=== PATIENT | female | born 1970 | race Caucasian/White ===

== ENCOUNTER 2016-12-14 14:06 | Emergency (ER) | payer OTHER ==
[~2016-12-14] VITALS: Ht 154.9 cm; Wt 63.5 kg
[2016-12-14 14:08] VITALS: BP 142/73; PULSE 96; RESP 18; TEMP 98.1; O2SAT 98
[2016-12-14 14:39] VITALS: BP 117/70; PULSE 87; RESP 25; TEMP 98.1; O2SAT 99
--- NOTE | 2016-12-14 14:43 | PD ---
HPI . chest pain post fall. Chief Complaint: Respiratory Distress Time Seen by Provider: 14:37 Travel History International Travel<30 days: No Contact w/Intl Traveler<30days: No Traveled to known affect area: No History of Present Illness HPI Patient states that she fell and injured her left anterior chest wall. She states she cannot breathe. PFSH Past Medical History ?: Not Social History Tobacco Use: Yes Allergies-Medications (Allergen,Severity, Reaction): Coded Allergies: No Known Allergies (Unverified , 12/14/16) Reported Meds & Prescriptions Reported Meds & Active Scripts Active Percocet (Oxycodone-Acetaminophen) 5-325 mg Tab 1-2 Tab PO Q6H PRN Ibuprofen 800 Mg Tab 800 Mg PO Q8H PRN Review of Systems Except as stated in HPI: all other systems reviewed are Neg Respiratory: Positive: Shortness of Breath Musculoskeletal: Positive: Myalgias (left anterior chest wall) Physical Exam Narrative GENERAL: The patient is speaking in a loud, forced whisper SKIN: Warm and dry. HEAD: Atraumatic. Normocephalic. EYES: Pupils equal and round. ENT: No nasal bleeding or discharge. Mucous membranes pink and moist. Most of her teeth are rotten to the gumline. NECK: Trachea midline. Neck is supple. CARDIOVASCULAR: Regular rate and rhythm. Heart sounds are normal. RESPIRATORY: No accessory muscle use. Lungs are clear with full air movement throughout. She has a harsh expiratory sounds which is heard loudest over her anterior neck. GASTROINTESTINAL: Abdomen soft, non-tender, nondistended. MUSCULOSKELETAL: No obvious deformities. No edema. NEUROLOGICAL: Awake and alert. No obvious cranial nerve deficits. Motor grossly within normal limits. Normal speech. PSYCHIATRIC: Inappropriate mood and affect. She seems unusually tearful. Data Data Last Documented VS Vital Signs Date Time Temp Pulse Resp B/P Pulse Ox O2 Delivery O2 Flow Rate FiO2 12/14/16 14:39 98.1 87 25 117/70 99 Nasal Cannula 2 Orders Complete Blood Count With Diff (12/14/16 14:16) Basic Metabolic Panel (Bmp) (12/14/16 14:16) Blood Culture (12/14/16 14:16) Iv Access Insert/Monitor (12/14/16 14:16) Ecg Monitoring (12/14/16 14:16) Oxygen Administration (12/14/16 14:16) Oximetry (12/14/16 14:16) Electrocardiogram (12/14/16 14:16) Ketorolac Inj (Toradol Inj) (12/14/16 14:45) Lorazepam Inj (Ativan Inj) (12/14/16 14:45) Chest,Inspiration & Expiration (12/14/16 14:39) Tramadol (Ultram) (12/14/16 16:15) Humerus (Min 2vws) (12/14/16 16:19) MDM Medical Decision Making Medical Screen Exam Complete: Yes Emergency Medical Condition: Yes Differential Diagnosis Differential diagnosis includes but is not limited to chest wall contusion, sternal or rib fracture, pneumothorax Narrative Course Patient presents for evaluation of a chest wall injury. She has full and equal breath sounds. Her respiratory rate was about 16 with O2 sats 98% on room air. Inspiratory/expiratory chest x-ray is negative for pneumothorax. The patient has no obvious rib fractures. She is stable for discharge. The patient has been on her call lott constantly requesting pain medication. 4:21 PM Patient is now complaining that her left humerus hurts. I have ordered an x- ray of same. 5:26 PM Her humeral x-ray does show a nondisplaced fracture just distal to the humeral head. I will treat her with a sling and swathe and give her a referral to orthopedics. Diagnosis Primary Impression: Chest wall contusion Qualified Code: S20.212A - Chest wall contusion, left, initial encounter Additional Impression: Left humeral fracture Qualified Code: S42.295A - Other closed nondisplaced fracture of proximal end of left humerus, initial encounter Referrals: Jeffry Burton MD 1 week Patient Instructions: Chest Wall Pain (ED), General Instructions, Narcotic given in the ED, Proximal Humerus Fracture (ED) Med/Other Pt SpecificInfo: Prescription(s) given Scripts Oxycodone-Acetaminophen (Percocet)5-325 mg Tab1-2 Tab PO Q6H PRN (PAIN) #15 TAB Ref 0 Prov:Radha Tubbs MD 12/14/16 Ibuprofen 800 Mg [id number] Mg PO Q8H PRN (pain) #15 TAB Ref 0 Prov:Radha Tubbs MD 12/14/16 Disposition: 01 DISCHARGE HOME Condition: Stable Radha Tubbs MD Dec 14, 2016 14:43
[2016-12-14] MEDS ORDERED: LORazepam 2 MG/ML VIAL IM ONE (14:45)
[2016-12-14] MEDS ORDERED: KETOROLAC TROMETHAMINE 60 MG/2 ML (IM) VIAL IM ONE (14:45)
--- NOTE | 2016-12-14 16:05 | RADRPT ---
EXAM DATE/TIME: 12/14/2016 15:42 [facility] COMPARISON: No previous studies available for comparison. INDICATIONS : Left chest pain post fall today. MEDICAL HISTORY : None. SURGICAL HISTORY : None. ENCOUNTER: Initial ACUITY: 1 day PAIN SCORE: 10/10 LOCATION: Left chest FINDINGS: Frontal views of the chest in inspiration and expiration were performed. The lungs are symmetrically aerated and clear. No evidence of pneumothorax. There is no evidence of mediastinal shift between inspiration and expiration. The cardio-mediastinal contours are unremarkable. Osseous structures are intact. CONCLUSION: Normal examination. Ana Cristina Scott MD on December 14, 2016 at 16:03 Board Certified Radiologist. This report was verified electronically.
[2016-12-14] MEDS ORDERED: traMADol HCL 50 MG TAB PO ONE (16:15)
[2016-12-14] MEDS ORDERED: IBUP800T23 PO (16:17)
[2016-12-14] MEDS ORDERED: ULTR50TA5 PO (16:17)
--- NOTE | 2016-12-14 17:07 | RADRPT ---
EXAM DATE/TIME: 12/14/2016 16:33 [facility] COMPARISON: No previous studies available for comparison. INDICATIONS : Left arm pain post fall today. MEDICAL HISTORY : None. SURGICAL HISTORY : None. ENCOUNTER: Initial ACUITY: 1 day PAIN SCORE: 10/10 LOCATION: Left arm FINDINGS: 2 views of the left humerus demonstrates a nondisplaced fracture involving the greater tuberosity of the humerus. No evidence of shoulder dislocation. The bones appear normally mineralized. Adjacent sof t tissues are unremarkable. CONCLUSION: Nondisplaced fracture involving the left humerus at the level of the greater tuberosi ty. Ana Cristina Scott MD on December 14, 2016 at 17:05 Board Certified Radiologist. This report was verified electronically.
[2016-12-14] MEDS ORDERED: PERC5TAB12 PO (17:29)
== END 2016-12-14 18:22 | disposition home or self-care (01) ==
LOC: NEPA 14:06
DX: S42.255A Nondisplaced fracture of greater tuberosity of left humerus, initial encounter for closed fracture (principal); S20.212A Contusion of left front wall of thorax, initial encounter; W19.XXXA Unspecified fall, initial encounter; Y93.9 Activity, unspecified; Y92.9 Unspecified place or not applicable
CPT/HCPCS: 29240; 71020; 73060; 96372; 99284; J1885; J2060

== ENCOUNTER 2016-12-19 17:59 | Emergency (ER) | payer OTHER ==
[~2016-12-19] VITALS: Ht 160 cm; Wt 58.5 kg
[~2016-12-19 17:59] MED LIST: IBUP800T23 PO; PERC5TAB12 PO
[2016-12-19 18:01] VITALS: BP 134/84; PULSE 111; RESP 14; TEMP 98.4; O2SAT 96
[2016-12-19 21:13] LABS: AUTOMATED NEUTROPHIL # 4.4 TH/MM3 (1.8-7.7); BASOPHIL # 0.1 TH/MM3 (0-0.2); BASOPHIL % 1.2 % (0.0-2.0); EOSINOPHIL # 0.5 TH/MM3 (0-0.4); EOSINOPHIL % 6.4 % (0.0-4.0); HEMATOCRIT 42.8 % (35.0-46.0); HEMO FLAGS DIFF FINAL; LYMPHOCYTE # 2.8 TH/MM3 (1.0-4.8); MEAN CELL VOLUME 97.3 FL (80.0-100.0); MEAN CORPUSCULAR HEMOGLOBIN 32.6 PG (27.0-34.0); MEAN CORPUSCULAR HGB CONC 33.5 % (32.0-36.0); MONO % 7.3 % (0.0-8.0); NEUT % 52.1 % (16.0-70.0); PLATELET COUNT 346 TH/MM3 (150-450); RED CELL DISTRIBUTION WIDTH 14.5 % (11.6-17.2); WHITE BLOOD COUNT 8.4 TH/MM3 (4.0-11.0)
[2016-12-19] MEDS ORDERED: RESP: ALBUTEROL 2.5 MG/IPRATROPIUM 0.5 MG NEB (SCH) NEB ONE (21:30)
--- NOTE | 2016-12-19 21:34 | RADRPT ---
EXAM DATE/TIME: 12/19/2016 20:48 [facility] COMPARISON: CHEST INSPIRATION & EXPIRATION, December 14, 2016, 15:42. INDICATIONS : Left sided chest pain. Patient fell six days ago. Pain and trouble breathing since then. MEDICAL HISTORY : None. SURGICAL HISTORY : None. ENCOUNTER: Initial ACUITY: 4 - 6 days PAIN SCORE: 10/10 LOCATION: Bilateral chest FINDINGS: A single view of the chest demonstrates the lungs to be symmetrically aerated without evidence of mas s, infiltrate or effusion. There is elevation of the left hemidiaphragm. The cardiomediastinal conto urs are unremarkable. There is a levocurvature of the lower thoracic spine. There is a questionable d eformity at the anterior ninth and 10th left ribs. CONCLUSION: Questionable deformities at the anterior left ninth and 10th ribs. There is also elevation of the lef t hemidiaphragm. The chest x-ray is otherwise negative. Maicol Valencia MD on December 19, 2016 at 21:30 Board Certified Radiologist. This report was verified electronically.
[2016-12-19 21:41] LABS: ANION GAP 9 MEQ/L (5-15); BICARBONATE 24.2 MEQ/L (21.0-32.0); BLOOD UREA NITROGEN 14 MG/DL (7-18); CHLORIDE 110 MEQ/L (98-107); GLOMERULAR FILTRATION RATE 99 ML/MIN (>89); SODIUM (NA) 143 MEQ/L (136-145)
[2016-12-19 22:06] LABS: POTASSIUM 5.3 MEQ/L (3.5-5.1)
[2016-12-19 22:07] LABS: CREATINE KINASE 253 U/L (26-192)
[2016-12-19 22:19] LABS: CKMB 1.9 NG/ML (0.5-3.6)
[2016-12-19 22:37] VITALS: BP 119/67; PULSE 84; RESP 16; O2SAT 98
[2016-12-19] MEDS ORDERED: AZITHROMYCIN INJ 500 MG in SODIUM CHLOR 0.9% 250 ML INJ 250 ML IV ONE (23:00)
[2016-12-19] MEDS ORDERED: methylPREDNISolone SOD SUCC 125 MG/2 ML VIAL IVP ONE (23:00)
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
[2016-12-19] MEDS: RESP: ALBUTEROL 2.5 MG/IPRATROPIUM 0.5 MG NEB (SCH) INH (23:13)
[2016-12-19] MEDS ORDERED: MORPHINE SULFATE 4 MG/ML INJ IV PUSH ONE (23:30)
[2016-12-19] MEDS ORDERED: ONDANSETRON HCL 4 MG/2 ML VIAL IV PUSH ONE (23:30)
[2016-12-19] MEDS: SODIUM CHLORIDE 0.9% FLUSH 5 ML FLUSH IVF PRN (23:54)
[2016-12-20] MEDS: SODIUM CHLORIDE 0.9% FLUSH 5 ML FLUSH IVF PRN (00:57)
[2016-12-20] MEDS ORDERED: IOHEXOL 350 MG/ML 10 ML VIAL (for RAD DIAG) IV ONE (01:20)
--- NOTE | 2016-12-20 01:22 | RADRPT ---
EXAM DATE/TIME: 12/20/2016 00:30 [facility] COMPARISON: No previous studies available for comparison. INDICATIONS : Left wrist pain. MEDICAL HISTORY : None. SURGICAL HISTORY : None. ENCOUNTER: Initial ACUITY: 1 day PAIN SCORE: 6/10 LOCATION: Left wrist. FINDINGS: Three view examination of the left wrist demonstrates no soft tissue swelling, dislocation, or fractu re. The carpal bones are in normal alignment. The joint spaces are maintained. Bony mineralization is normal. CONCLUSION: Within normal limits. Maicol Rose MD on December 20, 2016 at 1:19 Board Certified Radiologist. This report was verified electronically.
--- NOTE | 2016-12-20 01:23 | RADRPT ---
EXAM DATE/TIME: 12/20/2016 00:31 [facility] COMPARISON: No previous studies available for comparison. INDICATIONS : Left hand pain. MEDICAL HISTORY : None. SURGICAL HISTORY : None. ENCOUNTER: Initial ACUITY: 1 day PAIN SCORE: 10/10 LOCATION: Left hand. FINDINGS: Three view examination of the left hand demonstrates no soft tissue swelling, dislocation, or fractur e. The carpal bones appear intact. The interphalangeal and metacarpophalangeal joints are intact. Bony mineralization is normal. CONCLUSION: Intact left hand. No significant arthropathy seen. Maicol Rose MD on December 20, 2016 at 1:20 Board Certified Radiologist. This report was verified electronically.
[2016-12-20] MEDS ORDERED: AUGM875T PO (01:27)
[2016-12-20] MEDS ORDERED: ALBU1AER5 INH (01:27)
[2016-12-20] MEDS ORDERED: MEDR4PAK PO (01:27)
[2016-12-20] MEDS ORDERED: HYDR-3533 PO (01:27)
--- NOTE | 2016-12-20 01:36 | RADRPT ---
EXAM DATE/TIME: 12/20/2016 01:15 [facility] COMPARISON: No previous studies available for comparison. INDICATIONS : Fall. Left upper qaudrant pain. IV CONTRAST: 85 cc Omnipaque 350 (iohexol) IV ORAL CONTRAST: No oral contrast ingested. RADIATION DOSE: 12.31 CTDIvol (mGy) MEDICAL HISTORY : Chronic obstructive pulmonary disease. SURGICAL HISTORY : Hysterectomy. section. ENCOUNTER: Initial ACUITY: 1 day PAIN SCALE: 8/10 LOCATION: Left upper quadrant TECHNIQUE: Volumetric scanning of the abdomen and pelvis was performed. Using automated exposure control and ad justment of the mA and/or kV according to patient size, radiation dose was kept as low as reasonably achievable to obtain optimal diagnostic quality images. FINDINGS: LOWER LUNGS: The visualized lower lungs are clear. LIVER: Homogeneous density without lesion. There is no dilation of the biliary tree. No calcified gallston es. SPLEEN: Normal size without lesion. PANCREAS: Within normal limits. KIDNEYS: Normal in size and shape. There is no mass, stone or hydronephrosis. ADRENAL GLANDS: Within normal limits. VASCULAR: There is no aortic aneurysm. BOWEL/MESENTERY: The stomach, small bowel, and colon demonstrate no acute abnormality. There is no free intraperitone al air or fluid. The appendix is well-visualized, normal. ABDOMINAL WALL: Within normal limits. RETROPERITONEUM: There is no lymphadenopathy. BLADDER: No wall thickening or mass. REPRODUCTIVE: Within normal limits. INGUINAL: There is no lymphadenopathy or hernia. MUSCULOSKELETAL: No acute bony abnormality demonstrated. CONCLUSION: No acute abnormality. Maicol Rose MD on December 20, 2016 at 1:32 Board Certified Radiologist. This report was verified electronically.
[2016-12-20 02:15] VITALS: O2SAT 99
[2016-12-20 03:25] VITALS: BP 100/56
--- NOTE | 2016-12-20 15:42 | EKG ---
Date Performed: 12/19/2016 Time Performed: 20:34:04 PTAGE: 46 years EKG: Sinus rhythm NORMAL ECG NO PREVIOUS TRACING DOCTOR: Benitez Macedo Interpretating Date/Time 12/20/2016 15:40:03
== END 2016-12-20 03:33 | disposition home or self-care (01) ==
LOC: NEPC 17:59
DX: S42.202A Unspecified fracture of upper end of left humerus, initial encounter for closed fracture (principal); S22.42XA Multiple fractures of ribs, left side, initial encounter for closed fracture; J44.1 Chronic obstructive pulmonary disease with (acute) exacerbation; F17.210 Nicotine dependence, cigarettes, uncomplicated; W19.XXXA Unspecified fall, initial encounter
CPT/HCPCS: 71010; 73110; 73130; 74177; 80048; 82550; 82552; 84484; 85025; 93005; 94640; 94664; 96365; 96375; 99284; J0456; J2270; J2405; J2930; J7050; Q9967

== ENCOUNTER 2017-04-03 14:15 | Emergency (ER) | payer OTHER ==
[~2017-04-03 14:15] MED LIST changes: +ALBU1AER5 INH; +AUGM875T PO; +HYDR-3533 PO; -IBUP800T23 PO; +MEDR4PAK PO; -PERC5TAB12 PO
[2017-04-03 14:22] VITALS: PULSE 99; RESP 20; TEMP 98.1
--- NOTE | 2017-04-03 14:24 | PD ---
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 Seen at triage desk. Awaiting bed placement. Data Data Last Documented VS Vital Signs Date Time Temp Pulse Resp B/P Pulse Ox O2 Delivery O2 Flow Rate FiO2 04/03/17 14:22 98.1 99 20 MDM Medical Record Reviewed: Yes Supervised Visit with RIZWAN: No Fernie العلي April 03, 2017 14:24 Fernie العلي April 03, 2017 14:24
[2017-04-03] MEDS ORDERED: methylPREDNISolone SOD SUCC 125 MG/2 ML VIAL IVP ONE (15:15)
[2017-04-03] MEDS ORDERED: KETOROLAC TROMETHAMINE 30 MG/ML (IVP) VIAL IV PUSH ONE (15:15)
[2017-04-03] MEDS ORDERED: diphenhydrAMINE HCL 50 MG/ML VIAL IV PUSH ONE (15:30)
--- NOTE | 2017-04-03 15:31 | PD ---
HPI Chief Complaint: Respiratory Distress Time Seen by Provider: 15:08 Travel History International Travel<30 days: No Contact w/Intl Traveler<30days: No Traveled to known affect area: No History of Present Illness HPI 47-year-old female complains of right elbow quadrant abdominal pain, bilateral leg stumps pain. Patient states that she fell today getting out of the shower. Patient status post bilateral BKA. Patient had prosthesis replaced yesterday. Patient started having itching rash on both legs stumps. Patient was getting out of the shower today and fell and hit the right side, right upper quadrant of the abdomen against the toilet. Patient denies any head injury. Patient denies any headache. Patient denies any neck pain. Patient denies any chest pain. Patient has history of COPD and is a smoker. Patient states that she has increasing shortness of breath after the fall. Patient denies nausea vomiting diarrhea. She complained of sharp pain localized to right upper quadrant the abdomen. Patient denies any pain radiation. Patient complained sharp pain on bilateral legs stumps. Patient also complains of left upper arm pain from the shoulder to the left elbow. Patient complains of dysuria recently. Patient denies any back pain, fever chills. On a scale of 1- 10 the pain is a 10. PFSH Past Medical History Respiratory: Yes ?: Not : 4 Para: 8 Past Surgical History Section: Yes Hysterectomy: Yes Oral Surgery: Yes Social History Alcohol Use: No Tobacco Use: No (one pack per day) Substance Use: No Allergies-Medications (Allergen,Severity, Reaction): Coded Allergies: No Known Allergies (Unverified , 12/19/16) Reported Meds & Prescriptions Reported Meds & Active Scripts Active Proair Respiclick Inh (Albuterol Sulfate) 90 Mcg/Act Aerp 2 Puff INH Q6H PRN Lortab (Hydrocodone-Acetaminophen) 5-325 Mg Tab 1 Tab PO Q6H PRN Reported Aspirin 81 Mg Tabdr 81 Mg PO DAILY Nitroglycerin SL (Nitroglycerin) 0.4 Mg Subl 0.4 Mg SL DIRECTED PRN ONE TABLET UNDER THE TONGUE NEEDED FOR CHEST PAIN, MAY REPEAT EVERY FIVE MINUTES FOR A TOTAL OF 3 DOSES OR CALL 911 IF NO RELIEF Ventolin Hfa 18 GM Inh (Albuterol Sulfate) 90 Mcg/Act Aer 2 Puff INH Q4-6H PRN Amitriptyline (Amitriptyline HCl) 25 Mg Tab 25 Mg PO HS Embeda (Morphine-Naltrexone ER) 50-2 Mg Caper 1 Cap PO BID Lyrica (Pregabalin) 50 Mg Cap 50 Mg PO DAILY Gabapentin 600 Mg Tab 600 Mg PO HS Advair Diskus Inh (Fluticasone-Salmeterol Inh) 100-50 Mcg/Blist Aer 1 Puff INH BID Rinse mouth after use. Review of Systems General / Constitutional: No: Fever Eyes: No: Visual changes HENT: No: Headaches Cardiovascular: No: Chest Pain or Discomfort Respiratory: Positive: Shortness of Breath Gastrointestinal: Positive: Abdominal Pain Genitourinary: No: Dysuria Musculoskeletal: Positive: Pain Skin: No Rash Neurologic: No: Weakness Psychiatric: No: Depression Endocrine: No: Polydipsia Hematologic/Lymphatic: No: Easy Bruising Physical Exam Narrative GENERAL: Well-nourished, well-developed patient. SKIN: Focused skin assessment warm/dry. Patient has hives over the distal aspect of bilateral stumps area. HEAD: Normocephalic. EYES: No scleral icterus. No injection or drainage. NECK: Supple, trachea midline. No JVD or lymphadenopathy. CARDIOVASCULAR: Regular rate and rhythm without murmurs, gallops, or rubs. RESPIRATORY: Breath sounds equal bilaterally. No accessory muscle use. GASTROINTESTINAL: Abdomen soft, nondistended. Patient has moderate tenderness on palpation right upper quadrant of the abdomen. No rebound tenderness. No mass. MUSCULOSKELETAL: No cyanosis, or edema. Mild tenderness on palpation anterior aspect of bilateral distal leg stump. BACK: Nontender without obvious deformity. No CVA tenderness. Neurologic exam: Patient's awake and alert oriented 3. No obvious focal neurological deficit. Data Data Last Documented VS Vital Signs Date Time Temp Pulse Resp B/P Pulse Ox O2 Delivery O2 Flow Rate FiO2 04/03/17 17:50 95 Room Air 04/03/17 15:15 2 04/03/17 14:22 98.1 99 20 Orders Complete Blood Count With Diff (04/03/17 15:15) Comprehensive Metabolic Panel (04/03/17 15:15) Act Partial Throm Time (Ptt) (04/03/17 15:15) Prothrombin Time / Inr (Pt) (04/03/17 15:15) Urinalysis - C+S If Indicated (04/03/17 15:15) Iv Access Insert/Monitor (04/03/17 15:15) Ecg Monitoring (04/03/17 15:15) Oximetry (04/03/17 15:15) Oxygen Administration (04/03/17 15:15) Chest, Single Ap (04/03/17 15:15) Methylprednisolone So Succ Inj (Solumedr (04/03/17 15:15) Albuterol-Ipratropium Neb (Duoneb Neb) (04/03/17 15:15) Ketorolac Inj (Toradol Inj) (04/03/17 15:15) Knee, Ltd (1 Or 2vws) (04/03/17 15:20) Ct Abd/Pel W Iv Contrast(Rout) (04/03/17 15:20) Knee, Ltd (1 Or 2vws) (04/03/17 15:20) Diphenhydramine Inj (Benadryl Inj) (04/03/17 15:30) Humerus (Min 2vws) (04/03/17 15:26) Ketorolac Inj (Toradol Inj) (04/03/17 16:45) Dexamethasone Inj (Decadron Inj) (04/03/17 16:45) Diphenhydramine Inj (Benadryl Inj) (04/03/17 16:45) Morphine Inj (Morphine Inj) (04/03/17 17:45) Ondansetron Inj (Zofran Inj) (04/03/17 17:45) Iohexol 350 Inj (Omnipaque 350 Inj) (04/03/17 18:16) Labs Laboratory Tests Test 04/03/17 04/03/17 15:00 17:00 Urine Color YELLOW Urine Turbidity CLEAR Urine pH 5.0 Urine Specific [place] 1.015 Urine Protein NEG mg/dL Urine Glucose (UA) NEG mg/dL Urine Ketones NEG mg/dL Urine Occult Blood NEG Urine Nitrite NEG Urine Bilirubin NEG Urine Urobilinogen LESS THAN 2.0 MG/DL Urine Leukocyte Esterase NEG Urine RBC LESS THAN 1 /hpf Urine WBC 1 /hpf Urine Squamous Epithelial 1 /hpf Cells Urine Hyaline Casts 1 /lpf Microscopic Urinalysis Comment CULT NOT INDICATED White Blood Count 13.8 TH/MM3 Red Blood Count 3.96 MIL/MM3 Hemoglobin 12.4 GM/DL Hematocrit 37.0 % Mean Corpuscular Volume 93.4 FL Mean Corpuscular Hemoglobin 31.4 PG Mean Corpuscular Hemoglobin 33.6 % Concent Red Cell Distribution Width 13.0 % Platelet Count 265 TH/MM3 Mean Platelet Volume 8.4 FL Neutrophils (%) (Auto) 61.8 % Lymphocytes (%) (Auto) 25.8 % Monocytes (%) (Auto) 6.2 % Eosinophils (%) (Auto) 5.6 % Basophils (%) (Auto) 0.6 % Neutrophils # (Auto) 8.5 TH/MM3 Lymphocytes # (Auto) 3.6 TH/MM3 Monocytes # (Auto) 0.8 TH/MM3 Eosinophils # (Auto) 0.8 TH/MM3 Basophils # (Auto) 0.1 TH/MM3 CBC Comment DIFF FINAL Differential Comment Prothrombin Time 10.2 SEC Prothromb Time International 0.9 RATIO Ratio Activated Partial 30.7 SEC Thromboplast Time Sodium Level 142 MEQ/L Potassium Level 3.5 MEQ/L Chloride Level 107 MEQ/L Carbon Dioxide Level 28.1 MEQ/L Anion Gap 7 MEQ/L Blood Urea Nitrogen 10 MG/DL Creatinine 0.51 MG/DL Estimat Glomerular Filtration 129 ML/MIN Rate Random Glucose 80 MG/DL Calcium Level 7.9 MG/DL Total Bilirubin 0.3 MG/DL Aspartate Amino Transf 34 U/L (AST/SGOT) Alanine Aminotransferase 29 U/L (ALT/SGPT) Alkaline Phosphatase 101 U/L Total Protein 6.6 GM/DL Albumin 3.5 GM/DL MDM Medical Decision Making Medical Screen Exam Complete: Yes Emergency Medical Condition: Yes Interpretation(s) 1653 PM. Last Impressions Humerus X-Ray 04/03/171525 Signed Impressions: Service Date/Time: Monday, April 03, 2017 15:40 - CONCLUSION: Proximal humeral fracture involving the greater tubercle. Karel Muniz MD Knee X-Ray 04/03/17 152 Signed Impressions: Service Date/Time: Monday, April 03, 2017 15:43 - CONCLUSION: 1. No acute fracture. 2. Below the knee amputation. Karel uMniz MD Knee X-Ray 04/03/17 1520 Signed Impressions: Service Date/Time: Monday, April 03, 2017 15:42 - CONCLUSION: No acute fracture. Karel Muniz MD Chest X-Ray 04/03/17 1497 Signed Impressions: Service Date/Time: Monday, April 03, 2017 15:39 - CONCLUSION: No acute disease. Karel Muniz MD 1656 PM. UA is negative. Differential Diagnosis Differential diagnosis including contusion, intra-abdominal injury, fracture, dislocation. Patient also has acute exacerbation of COPD. Albuterol with Atrovent mutilatory treatment 3. Solu-Medrol 125 mg IV. Benadryl 51 mg IV. Toradol 30 mg IV. Narrative Course 47-year-old female with wheezing, shortness of breath, right upper quadrant abdominal pain from fall, bilateral pain from fall, left upper arm pain from fall. Sling and swath. Toradol 60 mg IM. Decadron 8 mg IM. Benadryl 50 mg IM. Morphine 2 mg IV. Zofran 4 mg IV. Diagnosis Primary Impression: Fracture of left humerus Qualified Code: S42.202A - Closed fracture of proximal end of left humerus, unspecified fracture morphology, initial encounter Additional Impressions: Multiple contusions Contact dermatitis Qualified Code: L23.9 - Allergic contact dermatitis, unspecified trigger Patient Instructions: General Instructions Additional Instructions: Take medication as directed. Follow-up with personal physician and orthopedist. Return if worse. Med/Other Pt SpecificInfo: Prescription(s) given Scripts Cyclobenzaprine (Flexeril)10 Mg Tab10 Mg PO TID #60 TAB Ref 0 Prov:Jordan Sandhu MD 04/03/17 Cetirizine (Zyrtec Allergy)10 Mg Cap10 Mg PO DAILY #10 CAP Ref 0 Prov:Jordan Sandhu MD 04/03/17 Prednisone 20 Mg Tab20 Mg PO BID #10 TAB Prov:Jordan Sandhu MD 04/03/17 Disposition: 01 DISCHARGE HOME Condition: Stable Jordan Sandhu MD April 03, 2017 15:31
[2017-04-03 16:12] LABS: BLOOD, URINE NEG (NEG); COMMENT (UR) CULT NOT INDICATED; CULTURE IF INDICATED CULT NOT INDICATED; GLUCOSE,URINE NEG (NEG); HYALINE CAST, URINE 1 /lpf (RARE); KETONE, URINE NEG (NEG); NITRITE,URINE NEG (NEG); SQUAMOUS EPITHELIAL CELL URINE 1 /hpf (0-5); URINE COLOR YELLOW (YELLW/STRAW)
--- NOTE | 2017-04-03 16:15 | RADRPT ---
EXAM DATE/TIME: 04/03/2017 15:39 [facility] COMPARISON: CHEST SINGLE AP, December 19, 2016, 20:48. INDICATIONS : Shortness of breath. MEDICAL HISTORY : None. SURGICAL HISTORY : None. ENCOUNTER: Initial ACUITY: 1 day PAIN SCORE: 0/10 LOCATION: Bilateral chest FINDINGS: A single view of the chest demonstrates the lungs to be symmetrically aerated without evidence of mas s, infiltrate or effusion. The cardiomediastinal contours are unremarkable. Osseous structures are intact. CONCLUSION: No acute disease. Karel Muniz MD on April 03, 2017 at 16:11 Board Certified Radiologist. This report was verified electronically.
--- NOTE | 2017-04-03 16:28 | RADRPT ---
EXAM DATE/TIME: 04/03/2017 15:40 [facility] COMPARISON: No previous studies available for comparison. INDICATIONS : Fall. MEDICAL HISTORY : None. SURGICAL HISTORY : None. ENCOUNTER: Initial ACUITY: 1 day PAIN SCORE: 0/10 LOCATION: Left humerus FINDINGS: Two view examination of the left humerus demonstrates mildly displaced fracture of the greater tuberc le. Mid to distal humerus is intact. CONCLUSION: Proximal humeral fracture involving the greater tubercle. Karel Muniz MD on April 03, 2017 at 16:25 Board Certified Radiologist. This report was verified electronically.
--- NOTE | 2017-04-03 16:28 | RADRPT ---
EXAM DATE/TIME: 04/03/2017 15:42 [facility] COMPARISON: No previous studies available for comparison. INDICATIONS : Fall. MEDICAL HISTORY : None. SURGICAL HISTORY : Amputation below knee. ENCOUNTER: Initial ACUITY: 1 day PAIN SCORE: 0/10 LOCATION: Left knee FINDINGS: Two view examination of the left knee demonstrates no evidence of fracture or dislocation. Below the knee amputation. Bony mineralization is normal. The suprapatellar soft tissues have a normal config uration. CONCLUSION: No acute fracture. Karel Muniz MD on April 03, 2017 at 16:26 Board Certified Radiologist. This report was verified electronically.
--- NOTE | 2017-04-03 16:28 | RADRPT ---
EXAM DATE/TIME: 04/03/2017 15:43 [facility] COMPARISON: No previous studies available for comparison. INDICATIONS : Fall. MEDICAL HISTORY : None. SURGICAL HISTORY : Amputation below knee. ENCOUNTER: Initial ACUITY: 1 day PAIN SCORE: 0/10 LOCATION: Right knee FINDINGS: Two view examination of the right knee demonstrates no evidence of fracture or dislocation. Bony min eralization is normal. The suprapatellar soft tissues have a normal configuration. CONCLUSION: 1. No acute fracture. 2. Below the knee amputation. Karel Muniz MD on April 03, 2017 at 16:26 Board Certified Radiologist. This report was verified electronically.
[2017-04-03] MEDS: RESP: ALBUTEROL 2.5 MG/IPRATROPIUM 0.5 MG NEB (SCH) INH (16:40)
[2017-04-03] MEDS ORDERED: KETOROLAC TROMETHAMINE 60 MG/2 ML (IM) VIAL IM ONE (16:45)
[2017-04-03] MEDS ORDERED: DEXAMETHASONE SOD PHOS 4 MG/ML VIAL IM ONE (16:45)
[2017-04-03] MEDS ORDERED: diphenhydrAMINE HCL 50 MG/ML VIAL IM ONE (16:45)
[2017-04-03 17:29] LABS: AUTOMATED NEUTROPHIL # 8.5 TH/MM3 (1.8-7.7); BASOPHIL # 0.1 TH/MM3 (0-0.2); BASOPHIL % 0.6 % (0.0-2.0); EOSINOPHIL # 0.8 TH/MM3 (0-0.4); EOSINOPHIL % 5.6 % (0.0-4.0); HEMO FLAGS DIFF FINAL; LYMPH % 25.8 % (9.0-44.0); LYMPHOCYTE # 3.6 TH/MM3 (1.0-4.8); MEAN CELL VOLUME 93.4 FL (80.0-100.0); MEAN CORPUSCULAR HEMOGLOBIN 31.4 PG (27.0-34.0); MEAN CORPUSCULAR HGB CONC 33.6 % (32.0-36.0); MONO % 6.2 % (0.0-8.0); NEUT % 61.8 % (16.0-70.0); PLATELET COUNT 265 TH/MM3 (150-450); RED BLOOD COUNT 3.96 MIL/MM3 (4.00-5.30); WHITE BLOOD COUNT 13.8 TH/MM3 (4.0-11.0)
[2017-04-03] MEDS ORDERED: MORPHINE SULFATE 4 MG/ML INJ IV PUSH ONE (17:45)
[2017-04-03] MEDS ORDERED: ONDANSETRON HCL 4 MG/2 ML VIAL IV PUSH ONE (17:45)
[2017-04-03 17:46] LABS: ANION GAP 7 MEQ/L (5-15); AST (GOT) 34 U/L (15-37); BICARBONATE 28.1 MEQ/L (21.0-32.0); BLOOD UREA NITROGEN 10 MG/DL (7-18); CHLORIDE 107 MEQ/L (98-107); GLOMERULAR FILTRATION RATE 129 ML/MIN (>89); POTASSIUM 3.5 MEQ/L (3.5-5.1); SODIUM (NA) 142 MEQ/L (136-145)
[2017-04-03 17:49] LABS: ALKALINE PHOSPHATASE 101 U/L (45-117); ALT (GPT) 29 U/L (10-53); TOTAL BILIRUBIN ADULT 0.3 MG/DL (0.2-1.0)
[2017-04-03 17:50] VITALS: O2SAT 95
[2017-04-03 17:51] LABS: APTT (PATIENT) 30.7 SEC (24.3-30.1); INTERNATIONAL NORMALIZED RATIO 0.9 RATIO; PROTHROMBIN TIME - PATIENT 10.2 SEC (9.8-11.6)
[2017-04-03] MEDS ORDERED: IOHEXOL 350 MG/ML 10 ML VIAL (for RAD DIAG) IV ONE (18:16)
[2017-04-03] MEDS ORDERED: VENTAER INH ×2 (18:55→19:09)
[2017-04-03] MEDS ORDERED: GABA600T PO (18:55)
[2017-04-03] MEDS ORDERED: ADVA100A INH (18:55)
[2017-04-03] MEDS ORDERED: MORP1CAP81 PO (19:07)
[2017-04-03] MEDS ORDERED: LYRI50CA PO (19:07)
[2017-04-03] MEDS ORDERED: AMIT25TA9 PO (19:08)
--- NOTE | 2017-04-03 19:08 | RADRPT ---
EXAM DATE/TIME: 04/03/2017 18:23 [facility] COMPARISON: CT ABDOMEN & PELVIS W CONTRAST, December 20, 2016, 1:15. INDICATIONS : Abdomen pain. IV CONTRAST: 100 cc Omnipaque 350 (iohexol) IV ORAL CONTRAST: No oral contrast ingested. RADIATION DOSE: 9.96 CTDIvol (mGy) MEDICAL HISTORY : None SURGICAL HISTORY : Hysterectomy. ENCOUNTER: Initial ACUITY: 1 day PAIN SCALE: 5/10 LOCATION: Bilateral abdomen. TECHNIQUE: Volumetric scanning of the abdomen and pelvis was performed. Using automated exposure control and ad justment of the mA and/or kV according to patient size, radiation dose was kept as low as reasonably achievable to obtain optimal diagnostic quality images. FINDINGS: There is linear scarring or atelectasis at the lung bases. No acute bony abnormalities. No acute findings in the liver, spleen, adrenals, kidneys or pancreas. Calcified gallstones or biliar y ductal dilatation. There is no bowel obstruction. No free air or free fluid. No adenopathy. CONCLUSION: 1. No acute findings. No significant change since December 2016. Sajan Tijerina MD on April 03, 2017 at 19:00 Board Certified Radiologist. This report was verified electronically.
[2017-04-03] MEDS ORDERED: NITR1SUB3 SL (19:10)
[2017-04-03] MEDS ORDERED: ASPI1TAB69 PO (19:11)
[2017-04-03] MEDS ORDERED: ZYRT10CA PO (19:18)
[2017-04-03] MEDS ORDERED: CYCL1TAB29 PO (19:18)
[2017-04-03] MEDS ORDERED: PRED20 PO (19:18)
== END 2017-04-03 19:30 | disposition home or self-care (01) ==
LOC: NEPC 14:15
DX: S42.202A Unspecified fracture of upper end of left humerus, initial encounter for closed fracture (principal); T14.8 Other injury of unspecified body region; L25.9 Unspecified contact dermatitis, unspecified cause; R06.2 Wheezing; W18.30XA Fall on same level, unspecified, initial encounter; Y93.E1 Activity, personal bathing and showering; Y92.002 Bathroom of unspecified non-institutional (private) residence as the place of occurrence of the external cause
CPT/HCPCS: 71010; 73060; 73560; 74177; 80053; 81001; 85025; 85610; 85730; 94640; 94664; 96372; 96374; 96375; 99284; J1100; J1200; J1885; J2270; J2405; J2930; Q9967

== ENCOUNTER 2017-07-09 03:08 | Observation (INO) | payer OTHER ==
[2017-07-09] VITALS (10 sets, daily range): BP systolic 79–130; BP diastolic 53–75; PULSE 74–95; RESP 16–26; TEMP 97.6–98.4; O2SAT 96–98
[~2017-07-09] VITALS: Ht 165.1 cm; Wt 72.0 kg
[~2017-07-09 03:08] MED LIST changes: +ADVA100A INH; +AMIT25TA9 PO; +ASPI1TAB69 PO; -AUGM875T PO; +CYCL1TAB29 PO; +GABA600T PO; +LYRI50CA PO; -MEDR4PAK PO; +MORP1CAP81 PO; +NITR1SUB3 SL; +PRED20 PO; +VENTAER INH; +ZYRT10CA PO
[2017-07-09] MEDS ORDERED: ASPI81CH7 CHEW (03:13)
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
[2017-07-09] MEDS ORDERED: methylPREDNISolone SOD SUCC 125 MG/2 ML VIAL IVP ONE (03:30)
[2017-07-09] MEDS ORDERED: SODIUM CHLOR 0.9% 1000 ML INJ 1,000 ML IV ONE ×2 (03:30→12:30)
[2017-07-09] MEDS ORDERED: SODIUM CHLORIDE 0.9% FLUSH 10 ML FLUSH IVF PRN (03:30)
[2017-07-09] MEDS: RESP: ALBUTEROL 2.5 MG/IPRATROPIUM 0.5 MG NEB (SCH) INH ×7 (03:33→20:26)
[2017-07-09 03:38] LABS: AUTOMATED NEUTROPHIL # 5.3 TH/MM3 (1.8-7.7); BASOPHIL # 0.1 TH/MM3 (0-0.2); BASOPHIL % 1.1 % (0.0-2.0); EOSINOPHIL # 0.4 TH/MM3 (0-0.4); EOSINOPHIL % 4.4 % (0.0-4.0); HEMATOCRIT 41.2 % (35.0-46.0); HEMO FLAGS DIFF FINAL; LYMPH % 33.1 % (9.0-44.0); LYMPHOCYTE # 3.2 TH/MM3 (1.0-4.8); MEAN CELL VOLUME 93.7 FL (80.0-100.0); MEAN CORPUSCULAR HEMOGLOBIN 32.3 PG (27.0-34.0); MEAN CORPUSCULAR HGB CONC 34.5 % (32.0-36.0); MONO % 7.5 % (0.0-8.0); NEUT % 53.9 % (16.0-70.0); PLATELET COUNT 272 TH/MM3 (150-450); RED BLOOD COUNT 4.39 MIL/MM3 (4.00-5.30); WHITE BLOOD COUNT 9.7 TH/MM3 (4.0-11.0)
[2017-07-09 03:50] LABS: APTT (PATIENT) 27.8 SEC (24.3-30.1); INTERNATIONAL NORMALIZED RATIO 0.9 RATIO; PROTHROMBIN TIME - PATIENT 9.9 SEC (9.8-11.6)
--- NOTE | 2017-07-09 03:58 | RADRPT ---
EXAM DATE/TIME: 07/09/2017 03:34 [facility] COMPARISON: CHEST SINGLE AP, April 03, 2017, 15:39. INDICATIONS : Chest pain. MEDICAL HISTORY : None. SURGICAL HISTORY : None. ENCOUNTER: Initial ACUITY: 1 day PAIN SCORE: 0/10 LOCATION: Bilateral chest FINDINGS: A single view of the chest demonstrates linear scarring left base. Right lung clear. No effusion. No pneumothorax. Heart size normal. CONCLUSION: 1. Linear scarring left lung base. No consolidation or effusion. Sajan Tijerina MD on July 09, 2017 at 3:55 Board Certified Radiologist. This report was verified electronically.
[2017-07-09 04:13] LABS: ALT (GPT) 17 U/L (10-53); ANION GAP 9 MEQ/L (5-15); AST (GOT) 23 U/L (15-37); BICARBONATE 23.2 MEQ/L (21.0-32.0); BLOOD UREA NITROGEN 11 MG/DL (7-18); CHLORIDE 109 MEQ/L (98-107); GLOMERULAR FILTRATION RATE 116 ML/MIN (>89); MAGNESIUM 2.3 MG/DL (1.5-2.5); SODIUM (NA) 141 MEQ/L (136-145)
[2017-07-09 04:17] LABS: ALKALINE PHOSPHATASE 101 U/L (45-117); TOTAL BILIRUBIN ADULT 0.2 MG/DL (0.2-1.0)
[2017-07-09 04:22] LABS: CREATINE KINASE 50 U/L (26-192)
[2017-07-09] MEDS: NITROGLYCERIN 0.4 MG SL 25 TABS/BTL SL SCH ×2 (04:26→04:40)
[2017-07-09] MEDS: RESP: ALBUTEROL 2.5 MG/3 ML NEB (SCH) INH (04:47)
[2017-07-09] MEDS ORDERED: ASPIRIN 81 MG CHEW TAB CHEW ONE (05:00)
[2017-07-09] MEDS ORDERED: RESP: ALBUTEROL 2.5 MG/3 ML NEB (PRN) INH (05:00)
[2017-07-09] MEDS ORDERED: SODIUM CHLORIDE 0.9% FLUSH 10 ML FLUSH IV FLUSH PRN (05:00)
[2017-07-09] MEDS ORDERED: NITROGLYCERIN 0.4 MG SL 25 TABS/BTL SL PRN (05:00)
[2017-07-09] MEDS ORDERED: MAGNESIUM HYDROXIDE SUSP 30 ML CUP PO PRN (05:15)
[2017-07-09] MEDS ORDERED: ACETAMINOPHEN 325 MG TAB PO PRN ×2 (05:15)
[2017-07-09] MEDS ORDERED: ACETAMINOPHEN/HYDROcodone 325 MG/5 MG TAB PO PRN (05:15)
[2017-07-09] MEDS ORDERED: LACTULOSE SYRUP 20 GM/30 ML CUP PO PRN (05:15)
[2017-07-09] MEDS ORDERED: SENNOSIDES 8.6 MG TAB PO PRN (05:15)
[2017-07-09] MEDS ORDERED: NALOXONE HCL 0.4 MG/ML AMP IV PRN (05:15)
[2017-07-09] MEDS ORDERED: ONDANSETRON HCL 4 MG/2 ML VIAL IVP PRN (05:15)
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
[2017-07-09] MEDS ORDERED: RESP: RACEPINEPHRINE 2.25% 0.5 ML NEB NEB PRN ×2 (05:30→05:45)
[2017-07-09] MEDS ORDERED: IOHEXOL 350 MG/ML 10 ML VIAL (for RAD DIAG) IVCONTRAST ONE (05:53)
[2017-07-09] MEDS ORDERED: AZITHROMYCIN 250 MG TAB PO ONE (06:00)
--- NOTE | 2017-07-09 06:09 | RADRPT ---
EXAM DATE/TIME: 07/09/2017 05:52 [facility] COMPARISON: No previous studies available for comparison. INDICATIONS : Shortness of breath; rule out pulmonary embolus. IV CONTRAST: 75 cc Omnipaque 350 (iohexol) IV RADIATION DOSE: 23.19 CTDIvol (mGy) MEDICAL HISTORY : Chronic obstructive pulmonary disease. Asthma SURGICAL HISTORY : Hysterectomy. Bilateral BKA ENCOUNTER: Initial ACUITY: 1 day PAIN SCALE: 0/10 LOCATION: chest TECHNIQUE: Volumetric scanning of the chest was performed using a pulmonary embolism protocol MIP images were re constructed. Using automated exposure control and adjustment of the mA and/or kV according to patien t size, radiation dose was kept as low as reasonably achievable to obtain optimal diagnostic quality images. DICOM format image data is available electronically for review and comparison. Follow-up recommendations for detected pulmonary nodules are based at a minimum on nodule size and pa tient risk factors according to Fleischner Society Guidelines. FINDINGS: No filling defects identified in the pulmonary arteries to suggest pulmonary embolus. Minimal depende nt atelectasis in the lungs. No consolidation. No pleural or pericardial effusion. No adenopathy. CONCLUSION: 1. Negative for pulmonary embolus. Sajan Tijerina MD on July 09, 2017 at 6:05 Board Certified Radiologist. This report was verified electronically.
[2017-07-09] MEDS: HEPARIN SODIUM - SQ 10,000 UNITS/ML VIAL SQ SCH ×3 (06:31→21:50)
[2017-07-09] MEDS: MORPHINE SULFATE 4 MG/ML INJ IV PRN ×4 (07:14→21:42)
--- NOTE | 2017-07-09 07:51 | EKG ---
Date Performed: 07/09/2017 Time Performed: 03:03:32 PTAGE: 47 years EKG: Sinus rhythm NORMAL ECG PREVIOUS TRACING : 12/19/2016 20.34 No significant change from previous tracing noted. DOCTOR: Brent Hale Interpretating Date/Time 07/09/2017 07:49:21
[2017-07-09] MEDS: DOCUSATE SODIUM 50 MG/SENNA 8.6 MG TAB PO SCH ×2 (08:49→21:51)
[2017-07-09] MEDS: SODIUM CHLORIDE 0.9% FLUSH 10 ML FLUSH IV FLUSH SCH ×2 (08:49→21:42)
[2017-07-09] MEDS: methylPREDNISolone SOD SUCC 125 MG/2 ML VIAL IVP SCH ×3 (08:49→21:47)
[2017-07-09] MEDS: ACETAMINOPHEN/HYDROcodone 325 MG/7.5 MG TAB PO PRN (08:55)
[2017-07-09] MEDS: BUDESONIDE-FORMOTEROL 80/4.5 MCG INHALER INH SCH ×2 (09:00→21:45)
[2017-07-09] MEDS ORDERED: ASPIRIN 81 MG CHEW TAB CHEW SCH (09:00)
[2017-07-09 10:13] LABS: CREATINE KINASE 39 U/L (26-192)
--- NOTE | 2017-07-09 12:07 | EKG ---
Date Performed: 07/09/2017 Time Performed: 09:07:34 PTAGE: 47 years EKG: Sinus rhythm NORMAL ECG PREVIOUS TRACING : 07/09/2017 03.03 No significant change from previous tracing noted. DOCTOR: Brent Hale Interpretating Date/Time 07/09/2017 12:04:52
[2017-07-09] MEDS: BENZONATATE 100 MG CAP PO SCH ×2 (13:50→18:17)
[2017-07-09 17:49] LABS: CREATINE KINASE 34 U/L (26-192)
[2017-07-09] MEDS: GABAPENTIN 300 MG CAP PO SCH (21:51)
[2017-07-09] MEDS: AMITRIPTYLINE HCL 25 MG TAB PO SCH (21:54)
[2017-07-10] VITALS (8 sets, daily range): BP systolic 96–104; BP diastolic 53–61; PULSE 88–94; RESP 16–18; TEMP 98–98.3; O2SAT 93–97
[2017-07-10] MEDS ORDERED: RESP: ALBUTEROL 2.5 MG/3 ML NEB (SCH) NEB ONE ×2 (01:15→03:15)
[2017-07-10] MEDS ORDERED: methylPREDNISolone SOD SUCC 125 MG/2 ML VIAL IV PUSH ONE (01:15)
[2017-07-10] MEDS: ACETAMINOPHEN/HYDROcodone 325 MG/7.5 MG TAB PO PRN ×2 (01:29→18:12)
[2017-07-10] MEDS: methylPREDNISolone SOD SUCC 125 MG/2 ML VIAL IVP SCH ×4 (02:26→21:28)
[2017-07-10] MEDS: MORPHINE SULFATE 4 MG/ML INJ IV PRN ×4 (02:35→21:29)
[2017-07-10] MEDS: HEPARIN SODIUM - SQ 10,000 UNITS/ML VIAL SQ SCH ×3 (05:38→21:27)
[2017-07-10] MEDS ORDERED: AZITHROMYCIN 250 MG TAB PO SCH (06:00)
[2017-07-10 06:44] LABS: BLOOD GAS BASE EXCESS -2.6 mmol/L (-2-2); BLOOD GAS CARBOXYHEMOGLOBIN 0.8 % (0-4); BLOOD GAS HCO3 22 mmol/L (22-26); BLOOD GAS METHEMOGLOBIN 0.7 % (0-2); BLOOD GAS O2 HGB SATURATION 96 % (90-100); BLOOD GAS OXYGEN CONTENT 16.1 Vol % (12.0-20.0); BLOOD GAS PCO2 36 mmHg (38-42); BLOOD GAS PO2 89 mmHG (61-120); BLOOD GAS TOTAL HGB 11.8 G/DL (12.0-16.0); CRITICAL VALUE NO; DRAW SITE RT RADIAL; FIO2 21 %; OXYGEN DEVICE ROOM AIR; TEMP CORR TO 98.6
[2017-07-10 06:45] LABS: NUMBER OF ARTERIAL PUNCTURES 1; STAT YES; ULNAR PULSE PRESENT
[2017-07-10] MEDS: RESP: ALBUTEROL 2.5 MG/IPRATROPIUM 0.5 MG NEB (SCH) INH (07:38)
--- NOTE | 2017-07-10 08:25 | HHI.PR ---
Subjective Remarks Follow up for COPD exacerbation. Patient reports significant cough. No fever, chills. She feels tired and does not feel like walking today. She has bilateral prosthetic legs. Objective Vitals Vital Signs Date Time Temp Pulse Resp B/P (MAP) Pulse Ox O2 Delivery O2 Flow Rate FiO2 07/10/17 07:40 94 Nasal Cannula 2.00 07/10/17 04:14 98.0 92 18 96/56 (69) 95 07/10/17 01:13 98.0 88 18 103/54 (70) 95 07/09/17 20:27 98 Nasal Cannula 2.00 07/09/17 17:17 97.6 74 16 106/57 (73) 97 07/09/17 12:20 98/66 (77) 07/09/17 11:54 98.4 83 16 79/53 (62) 97 07/09/17 10:55 07/09/17 10:54 97.6 87 16 94/59 (71) 96 07/09/17 10:14 20 07/09/17 08:33 20 I/O 07/09/17 07/09/17 07/09/17 07/10/17 07/10/17 07/10/17 06:59 14:59 22:59 06:59 14:59 22:59 # Voids 1 Result Diagram: 07/09/17 0330 07/09/17 0330 Imaging Last Impressions Chest X-Ray 07/09/17 0321 Signed Impressions: Service Date/Time: Sunday, July 09, 2017 03:34 - CONCLUSION: 1. Linear scarring left lung base. No consolidation or effusion. Sajan Tijerina MD CT Angiography 07/09/17 0000 Signed Impressions: Service Date/Time: Sunday, July 09, 2017 05:52 - CONCLUSION: 1. Negative for pulmonary embolus. Sajan Tijerina MD Objective Remarks GENERAL: AOX3, NAD. SKIN: Warm and dry. HEAD: Normocephalic. EYES: No scleral icterus. No injection or drainage. NECK: Supple, trachea midline. No JVD or lymphadenopathy. CARDIOVASCULAR: Regular rate and rhythm without murmurs, gallops, or rubs. RESPIRATORY: Moderate air entry, scattered wheezing. GASTROINTESTINAL: Abdomen soft, non-tender, nondistended. MUSCULOSKELETAL: No cyanosis, or edema. BACK: Nontender without obvious deformity. No CVA tenderness. Procedures None. A/P Problem List: (1) COPD exacerbation ICD Code: J44.1 - Chronic obstructive pulmonary disease with (acute) exacerbation Status: Acute (2) Chest pain ICD Code: R07.9 - Chest pain, unspecified Status: Acute Assessment and Plan 47 y/o female with a history of MN and COPD presented to the ED with complaints of increasing shortness of breath. COPD exacerbation, on o2 at home, with persistent stridor and wheezing Chest x ray reviewed and shows Linear scarring left lung base. No consolidation of effusion. -Racemic epi nebs Q8hr, and Duonebs scheduled and PRN. -D/C Azithromycin, start Levaquin 750mg Qday. -Pain management with IV morphine and PO [place] -IV Solumedrol Q 6Hr -Sputum culture ordered -O2 as needed Chest pain, atypical likely related to COPD exacerbation, will r/o ACS, obtain CTA rule out PE Troponin 1st set less than .02, EKG reviewed and shows NSR with no ST elevation history of MN -Troponins X 3 negative. -Will reduce ASA to 81mg Qday. -Nitro SL prn - Will obtain a walk test in the AM and possibly discharge patient home in the AM. DVT prophylaxis: Heparin Problem Qualifiers (1) Chest pain: Qualified Codes: R07.9 - Chest pain, unspecified Schuyler Juares DO Jul 10, 2017 08:25
[2017-07-10] MEDS: BUDESONIDE-FORMOTEROL 80/4.5 MCG INHALER INH SCH ×2 (08:33→21:30)
[2017-07-10] MEDS: BENZONATATE 100 MG CAP PO SCH ×3 (08:33→17:53)
[2017-07-10] MEDS: DOCUSATE SODIUM 50 MG/SENNA 8.6 MG TAB PO SCH ×2 (08:33→21:27)
[2017-07-10] MEDS: SODIUM CHLORIDE 0.9% FLUSH 10 ML FLUSH IV FLUSH SCH ×2 (08:34→21:29)
[2017-07-10] MEDS ORDERED: LEVOFLOXACIN 750 MG TAB PO SCH (09:00)
[2017-07-10] MEDS ORDERED: ASPIRIN 325 MG TAB PO SCH (09:00)
[2017-07-10] MEDS: RESP: ALBUTEROL 2.5 MG/IPRATROPIUM 0.5 MG NEB (SCH) NEB ×3 (11:43→19:54)
--- NOTE | 2017-07-10 13:46 | EKG ---
Date Performed: 07/09/2017 Time Performed: 15:53:27 PTAGE: 47 years EKG: Sinus rhythm NORMAL ECG Compared to prior tracing no significant change PREVIOUS TRACING : 07/09/2017 15.51 DOCTOR: Anneliese Gomez Interpretating Date/Time 07/12/2017 06:55:48
--- NOTE | 2017-07-10 13:46 | EKG ---
Date Performed: 07/09/2017 Time Performed: 11:58:36 PTAGE: 47 years EKG: Sinus rhythm NORMAL ECG Compared to prior tracing no significant change PREVIOUS TRACING DOCTOR: Anneliese Gomez Interpretating Date/Time 07/10/2017 13:41:42
[2017-07-10] MEDS: GABAPENTIN 300 MG CAP PO SCH (21:27)
[2017-07-10] MEDS: AMITRIPTYLINE HCL 25 MG TAB PO SCH (22:00)
[2017-07-11] MEDS ORDERED: ASPIRIN 325 MG TAB PO SCH (09:00)
== END 2017-07-11 00:30 | disposition left against medical advice (07) ==
LOC: NEPE 03:08 → NEDA 05:07 → NEPFCDU 10:31
PROVIDERS: ADMIT Hospitalist; ATTEND Hospitalist
DX: J44.1 Chronic obstructive pulmonary disease with (acute) exacerbation (principal); I25.2 Old myocardial infarction; F12.90 Cannabis use, unspecified, uncomplicated; Z99.81 Dependence on supplemental oxygen; Z87.891 Personal history of nicotine dependence; Z89.511 Acquired absence of right leg below knee; Z89.512 Acquired absence of left leg below knee
CPT/HCPCS: 36600; 71010; 71275; 80053; 82550; 82805; 83735; 84484; 85025; 85610; 85730; 87070; 87205; 87804; 93005; 94640; 94664; 96361; 96372; 96374; 96375; 96376; 99291; G0378; J1644; J2270; J2930; J7030; J7613; Q9967

== ENCOUNTER 2017-07-16 15:25 | Inpatient (IN) | payer OTHER ==
[2017-07-16] VITALS (9 sets, daily range): BP systolic 112–144; BP diastolic 56–90; PULSE 104–109; RESP 22–24; TEMP 98.3; O2SAT 95–100
[2017-07-16] MEDS: ALPRAZolam 0.5 MG TAB PO PRN (09:40)
[~2017-07-16 15:25] MED LIST changes: +ASPI81CH7 CHEW
[2017-07-16] MEDS ORDERED: IOHEXOL 350 MG/ML 10 ML VIAL (for RAD DIAG) IVCONTRAST ONE (15:26)
--- NOTE | 2017-07-16 15:50 | PD ---
Physical Exam Date Seen by Provider: Jul 16, 2017 Time Seen by Provider: 15:48 Narrative Pt presents to the ED for evaluation of SOB. Symptoms started 1 hour REHAB AID. Pt with a hx of COPD but is concerned about CHF. Pt states inhalers not alleviating symptoms. Pt has a history of CHF. She states respirations are painful at a 10/10. Data Data Last Documented VS Vital Signs Date Time Temp Pulse Resp B/P (MAP) Pulse Ox O2 Delivery O2 Flow Rate FiO2 07/16/17 15:27 98.3 109 24 127/82 (97) 98 MDM Supervised Visit with RIZWAN: Sussy Pinto Jul 16, 2017 15:50
[2017-07-16] MEDS ORDERED: SODIUM CHLORIDE 0.9% FLUSH 10 ML FLUSH IVF PRN (16:00)
[2017-07-16] MEDS ORDERED: methylPREDNISolone SOD SUCC 125 MG/2 ML VIAL IVP ONE (16:00)
[2017-07-16] MEDS: RESP: ALBUTEROL 2.5 MG/IPRATROPIUM 0.5 MG NEB (SCH) INH ×4 (16:07→17:50)
[2017-07-16] MEDS ORDERED: ONDANSETRON HCL 4 MG/2 ML VIAL IV PUSH ONE (16:15)
[2017-07-16] MEDS ORDERED: MORPHINE SULFATE 4 MG/ML INJ IV PUSH ONE ×2 (16:15→19:45)
--- NOTE | 2017-07-16 16:17 | RADRPT ---
EXAM DATE/TIME: 07/16/2017 16:00 [facility] COMPARISON: CHEST SINGLE AP, July 09, 2017, 3:34. INDICATIONS : Short of breath. Wheezing. Chest pain. MEDICAL HISTORY : Chronic obstructive pulmonary disease. Asthma. SURGICAL HISTORY : Hysterectomy. Bilateral BKA. ENCOUNTER: Subsequent ACUITY: 1 week PAIN SCORE: 5/10 LOCATION: Bilateral chest FINDINGS: A single view of the chest demonstrates the lungs to be symmetrically aerated without evidence of mas s, infiltrate or effusion. The cardiomediastinal contours are unremarkable. Osseous structures are intact. CONCLUSION: No acute disease. Marco Castro Jr., MD on July 16, 2017 at 16:15 Board Certified Radiologist. This report was verified electronically.
[2017-07-16 17:02] LABS: AUTOMATED NEUTROPHIL # 7.1 TH/MM3 (1.8-7.7); BASOPHIL % 0.3 % (0.0-2.0); EOSINOPHIL # 0.2 TH/MM3 (0-0.4); EOSINOPHIL % 2.3 % (0.0-4.0); HEMATOCRIT 40.5 % (35.0-46.0); HEMO FLAGS DIFF FINAL; LYMPH % 21.3 % (9.0-44.0); LYMPHOCYTE # 2.2 TH/MM3 (1.0-4.8); MEAN CELL VOLUME 94.4 FL (80.0-100.0); MEAN CORPUSCULAR HEMOGLOBIN 32.3 PG (27.0-34.0); MEAN CORPUSCULAR HGB CONC 34.2 % (32.0-36.0); MONO % 5.9 % (0.0-8.0); NEUT % 70.2 % (16.0-70.0); PLATELET COUNT 233 TH/MM3 (150-450); RED BLOOD COUNT 4.29 MIL/MM3 (4.00-5.30); RED CELL DISTRIBUTION WIDTH 14.2 % (11.6-17.2); WHITE BLOOD COUNT 10.2 TH/MM3 (4.0-11.0)
[2017-07-16 17:22] LABS: APTT (PATIENT) 28.4 SEC (24.3-30.1); PROTHROMBIN TIME - PATIENT 10.6 SEC (9.8-11.6)
[2017-07-16 17:25] LABS: ANION GAP 9 MEQ/L (5-15); BICARBONATE 24.5 MEQ/L (21.0-32.0); BLOOD UREA NITROGEN 6 MG/DL (7-18); CHLORIDE 108 MEQ/L (98-107); GLOMERULAR FILTRATION RATE 88 ML/MIN (>89); POTASSIUM 3.2 MEQ/L (3.5-5.1); SODIUM (NA) 141 MEQ/L (136-145)
[2017-07-16 17:29] LABS: CREATINE KINASE 24 U/L (26-192)
--- NOTE | 2017-07-16 17:37 | PD ---
HPI Chief Complaint: Respiratory Symptoms Time Seen by Provider: 15:53 Travel History International Travel<30 days: No Contact w/Intl Traveler<30days: No Traveled to known affect area: No History of Present Illness HPI 39-year-old female that presents to the ED for evaluation of shortness of breath. Patient has a history of COPD and CHF as well as coronary artery disease. Patient apparently went to see her doctor today and she comes with a prescription that says that patient is to come here to get evaluated for worsening shortness of breath and possible CHF. She does have a history of this. Per patient she's been compliant with her medications and she actually is his 2 L of oxygen at home but she states that she's run out of her oxygen. Per patient her symptoms worsened today which is what led her to go to see her doctor. She was actually admitted just last week for similar and she apparently signed herself out early because she had to take care of a family issue. Denies any other medical issues. Per patient she does have severe pain on her left side of her chest. Per patient his pain is 8 out of 10. Does not radiate. She states that she feels short of breath with exertion and even just sitting. She has slight to penicillin. No other medical issues. 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, 2001); hysterectomy; c- sections) Social History Alcohol Use: No Tobacco Use: Yes Substance Use: No Allergies-Medications (Allergen,Severity, Reaction): Coded Allergies: penicillin G (Verified Allergy, Severe, Rash, 07/16/17) Reported Meds & Prescriptions Reported Meds & Active Scripts Active Proair Respiclick Inh (Albuterol Sulfate) 90 Mcg/Act Aerp 2 Puff INH Q6H PRN Reported Aspirin Children's (Aspirin) 81 Mg Chew 81 Mg CHEW DAILY Nitroglycerin SL (Nitroglycerin) 0.4 Mg Subl 0.4 Mg SL DIRECTED PRN ONE TABLET UNDER THE TONGUE NEEDED FOR CHEST PAIN, MAY REPEAT EVERY FIVE MINUTES FOR A TOTAL OF 3 DOSES OR CALL 911 IF NO RELIEF Ventolin Hfa 18 GM Inh (Albuterol Sulfate) 90 Mcg/Act Aer 2 Puff INH Q4-6H PRN Amitriptyline (Amitriptyline HCl) 25 Mg Tab 25 Mg PO HS Gabapentin 600 Mg Tab 600 Mg PO HS Advair Diskus Inh (Fluticasone-Salmeterol Inh) 100-50 Mcg/Blist Aer 1 Puff INH BID Rinse mouth after use. Review of Systems Except as stated in HPI: all other systems reviewed are Neg Physical Exam Narrative GENERAL: SKIN: Warm and dry. HEAD: Atraumatic. Normocephalic. EYES: Pupils equal and round. No scleral icterus. No injection or drainage. ENT: No nasal bleeding or discharge. Mucous membranes pink and moist. Tongue is midline. No uvula deviation. NECK: Trachea midline. No JVD. CARDIOVASCULAR: Regular rate and rhythm. No murmurs, S3, S4. RESPIRATORY: No accessory muscle use. Wheezings heard in the lower lung hutson. Breath sounds equal bilaterally. GASTROINTESTINAL: Abdomen soft, non-tender, nondistended. Hepatic and splenic margins not palpable. MUSCULOSKELETAL: Extremities without clubbing, cyanosis, or edema. No obvious deformities. Full range of motion of the upper and lower extremities bilaterally. 2+ pulses bilaterally. NEUROLOGICAL: Awake and alert. No obvious cranial nerve deficits. Motor grossly within normal limits. Five out of 5 muscle strength in the arms and legs. Normal speech. PSYCHIATRIC: Appropriate mood and affect; insight and judgment normal. Data Data Last Documented VS Vital Signs Date Time Temp Pulse Resp B/P (MAP) Pulse Ox O2 Delivery O2 Flow Rate FiO2 07/16/17 19:28 107 22 129/59 (82) 99 Non-Rebreather 15.00 07/16/17 17:58 50 07/16/17 15:27 98.3 Orders Orders Electrocardiogram (07/16/17 15:57) Complete Blood Count With Diff (07/16/17 15:57) Basic Metabolic Panel (Bmp) (07/16/17 15:57) Ckmb (Isoenzyme) Profile (07/16/17 15:57) Troponin I (07/16/17 15:57) B-Type Natriuretic Peptide (07/16/17 15:57) Prothrombin Time / Inr (Pt) (07/16/17 15:57) Act Partial Throm Time (Ptt) (07/16/17 15:57) Chest, Single Ap (07/16/17 15:57) Iv Access Insert/Monitor (07/16/17 15:57) Ecg Monitoring (07/16/17 15:57) Oximetry (07/16/17 15:57) Oxygen Administration (07/16/17 15:57) Methylprednisolone So Succ Inj (Solumedr (07/16/17 16:00) Albuterol-Ipratropium Neb (Duoneb Neb) (07/16/17 16:00) Sodium Chloride 0.9% Flush (Ns Flush) (07/16/17 16:00) Morphine Inj (Morphine Inj) (07/16/17 16:15) Ondansetron Inj (Zofran Inj) (07/16/17 16:15) Resp Bipap / Cpap Non Invas Vt (07/16/17 ) Arterial Blood Gas (Abg) (07/16/17 17:37) Albuterol-Ipratropium Neb (Duoneb Neb) (07/16/17 17:45) Ct Pulmonary Angiogram (07/16/17 ) Iohexol 350 Inj (Omnipaque 350 Inj) (07/16/17 15:26) Morphine Inj (Morphine Inj) (07/16/17 19:45) Admit Order (Ed Use Only) (07/16/17 19:56) Admit To Inpatient (07/16/17 ) Vital Signs (Adult) Q4H (07/16/17 19:57) Activity Oob With Assistance (07/16/17 19:57) Senior Compensation Consultant / Telemetry .CONTINUOUS (07/16/17 19:57) Diet Heart Healthy (07/17/17 Breakfast) Sodium Chloride 0.9% Flush (Ns Flush) (07/16/17 20:00) Sodium Chloride 0.9% Flush (Ns Flush) (07/16/17 21:00) Basic Metabolic Panel (Bmp) (07/17/17 06:00) Complete Blood Count With Diff (07/17/17 06:00) Pt Request For Service (07/16/17 19:57) Naloxone Inj (Narcan Inj) (07/16/17 20:00) Inpatient Certification (07/16/17 ) Lorazepam Inj (Ativan Inj) (07/16/17 20:00) Albuterol-Ipratropium Neb (Duoneb Neb) (07/16/17 22:00) Albuterol-Ipratropium Neb (Duoneb Neb) (07/16/17 20:00) Methylprednisolone So Succ Inj (Solumedr (07/17/17 00:00) Pantoprazole (Protonix) (07/17/17 09:00) Labs Laboratory Tests Test 07/16/17 16:35 07/16/17 18:21 White Blood Count 10.2 TH/MM3 Red Blood Count 4.29 MIL/MM3 Hemoglobin 13.8 GM/DL Hematocrit 40.5 % Mean Corpuscular Volume 94.4 FL Mean Corpuscular Hemoglobin 32.3 PG Mean Corpuscular Hemoglobin Concent 34.2 % Red Cell Distribution Width 14.2 % Platelet Count 233 TH/MM3 Mean Platelet Volume 7.9 FL Neutrophils (%) (Auto) 70.2 % Lymphocytes (%) (Auto) 21.3 % Monocytes (%) (Auto) 5.9 % Eosinophils (%) (Auto) 2.3 % Basophils (%) (Auto) 0.3 % Neutrophils # (Auto) 7.1 TH/MM3 Lymphocytes # (Auto) 2.2 TH/MM3 Monocytes # (Auto) 0.6 TH/MM3 Eosinophils # (Auto) 0.2 TH/MM3 Basophils # (Auto) 0.0 TH/MM3 CBC Comment DIFF FINAL Differential Comment Prothrombin Time 10.6 SEC Prothromb Time International Ratio 1.0 RATIO Activated Partial Thromboplast Time 28.4 SEC Blood Urea Nitrogen 6 MG/DL Creatinine 0.71 MG/DL Random Glucose 141 MG/DL Calcium Level 8.0 MG/DL Sodium Level 141 MEQ/L Potassium Level 3.2 MEQ/L Chloride Level 108 MEQ/L Carbon Dioxide Level 24.5 MEQ/L Anion Gap 9 MEQ/L Estimat Glomerular Filtration Rate 88 ML/MIN Total Creatine Kinase 24 U/L Troponin I LESS THAN 0.02 NG/ML B-Type Natriuretic Peptide 7 PG/ML Blood Gas Puncture Site LT RADIAL Blood Gas Patient Temperature 98.6 Blood Gas HCO3 24 mmol/L Blood Gas Base Excess -0.7 mmol/L Blood Gas Oxygen Saturation 97 % Arterial Blood pH 7.37 Arterial Blood Partial Pressure CO2 42 mmHg Arterial Blood Partial Pressure O2 231 mmHG Arterial Blood Oxygen Content 19.7 Vol % Arterial Blood Carboxyhemoglobin 1.5 % Arterial Blood Methemoglobin 1.0 % Blood Gas Hemoglobin 14.1 G/DL Oxygen Delivery Device BiPAP Blood Gas Ventilator Setting [id number] Blood Gas Inspired Oxygen 50 % MDM Medical Decision Making Medical Screen Exam Complete: Yes Emergency Medical Condition: Yes Medical Record Reviewed: Yes Interpretation(s) CBC & BMP Diagram 07/16/17 16:35 Calcium Level 8.0 L Last Impressions Chest X-Ray 07/16/17 5007 Signed Impressions: Service Date/Time: Sunday, July 16, 2017 16:00 - CONCLUSION: No acute disease. Marco Castro Jr., MD EKG shows sinus tachycardia but no sign of acute ischemia or arrhythmia but by me and attending. BMP within normal limits. Troponin and CK-MB negative. Differential Diagnosis COPD exacerbation versus chest pain versus atypical chest pain versus CHF versus anxiety Narrative Course 47-year-old female that presents to the ED for evaluation of shortness of breath. Patient was properly examined and was found to have signs and symptoms consistent appears to be sealed exacerbation. She came here with a prescription from her doctor wanted her to be worked up for CHF. Labs and imaging were not consistent with CHF for more with COPD. CT and exam was done as patient is tachycardic. CT was negative for this. At this time patient will be admitted for COPD exacerbation. Patient had another episode where she had a lot of shortness of breath and she was given a BiPAP. Patient will be admitted to [facility]. Case discussed with Dr. Rodriguez who agrees to admission. Diagnosis Primary Impression: COPD exacerbation Admitting Information Admitting Physician Requests: Admit Colt Garcia Jul 16, 2017 17:37
[2017-07-16 18:37] LABS: BLOOD GAS BASE EXCESS -0.7 mmol/L (-2-2); BLOOD GAS CARBOXYHEMOGLOBIN 1.5 % (0-4); BLOOD GAS HCO3 24 mmol/L (22-26); BLOOD GAS O2 HGB SATURATION 97 % (90-100); BLOOD GAS OXYGEN CONTENT 19.7 Vol % (12.0-20.0); BLOOD GAS PCO2 42 mmHg (38-42); BLOOD GAS PO2 231 mmHG (61-120); BLOOD GAS TOTAL HGB 14.1 G/DL (12.0-16.0); CRITICAL VALUE NO; DRAW SITE LT RADIAL; FIO2 50 %; NUMBER OF ARTERIAL PUNCTURES 1; OXYGEN DEVICE BiPAP; STAT YES; TEMP CORR TO 98.6; ULNAR PULSE PRESENT; VENT SETTINGS IPAP10EPAP5
[2017-07-16] MEDS ORDERED: LORazepam 2 MG/ML VIAL IV PUSH ONE (20:00)
[2017-07-16] MEDS ORDERED: RESP: ALBUTEROL 2.5 MG/IPRATROPIUM 0.5 MG NEB (PRN) NEB (20:00)
[2017-07-16] MEDS ORDERED: SODIUM CHLORIDE 0.9% FLUSH 10 ML FLUSH IV FLUSH PRN (20:00)
[2017-07-16] MEDS ORDERED: NALOXONE HCL 0.4 MG/ML AMP IV PRN (20:00)
--- NOTE | 2017-07-16 20:19 | RADRPT ---
EXAM DATE/TIME: 07/16/2017 18:50 [facility] COMPARISON: CT PULMONARY ANGIOGRAM, July 09, 2017, 5:52. INDICATIONS : Shortness of breath and chest pain today. IV CONTRAST: 72 cc Omnipaque 350 (iohexol) IV RADIATION DOSE: 18.27 CTDIvol (mGy) ; Patient positioning MEDICAL HISTORY : Chronic obstructive pulmonary disease. Congestive heart failure. SURGICAL HISTORY : None. ENCOUNTER: Initial ACUITY: 1 week PAIN SCALE: 6/10 LOCATION: chest TECHNIQUE: Volumetric scanning of the chest was performed using a pulmonary embolism protocol MIP images were re constructed. Using automated exposure control and adjustment of the mA and/or kV according to patien t size, radiation dose was kept as low as reasonably achievable to obtain optimal diagnostic quality images. DICOM format image data is available electronically for review and comparison. Follow-up recommendations for detected pulmonary nodules are based at a minimum on nodule size and pa tient risk factors according to Fleischner Society Guidelines. FINDINGS: PULMONARY ARTERIES: No filling defects are seen in the pulmonary arteries through the segmental level. LUNGS: There is minimal atelectasis or consolidation at the posterior lung bases being more prominent on the right. PLEURAE: There is no pleural thickening or pleural effusion. MEDIASTINUM: There is good visualization of the great vessels of the middle mediastinum. No evidence of mediastin al or hilar adenopathy/mass. MUSCULOSKELETAL: Within normal limits for patient age. MISCELLANEOUS: The visualized upper abdominal organs demonstrate no acute abnormality. CONCLUSION: 1. No pulmonary embolus. 2. Minimal basilar areas of suspected atelectasis or consolidation being worse on the right. Maicol Valencia MD on July 16, 2017 at 20:15 Board Certified Radiologist. This report was verified electronically.
[2017-07-16] MEDS: SODIUM CHLORIDE 0.9% FLUSH 10 ML FLUSH IV FLUSH SCH (21:52)
[2017-07-16] MEDS ORDERED: RESP: ALBUTEROL 2.5 MG/IPRATROPIUM 0.5 MG NEB (SCH) NEB (22:00)
--- NOTE | 2017-07-16 23:54 | HHI.HP ---
[facility]ician Unknown Admission Diagnosis COPD exacerbation Diagnoses: Chief Complaint: shortness of breath Travel History International Travel<30 Days: No Contact w/Intl Traveler <30 Da: No Traveled to Known Affected Are: No History of Present Illness Written by LEOBARDO Suarez acting as scribe for [Michael] on 07/16/17 at 23: 50. 47 y/o female with a history of COPD on 2L most of the day, CHF, and CAD presented to the ED with complaints of shortness of breath for 3 days. She was taking nebulizers every 2 hours without relief, she is also just finished Levaquin and in still taking a solumedrol pack. She states she is coughing up brown sputum, with complaints of chest pain when she coughs with associated nausea and dark urine. She states she has been out of O2 at home for 4 days. She still continues to smoke, and a pack will last her 4 days. She denies any fever, chills, headaches, or dizziness. She was admitted on 07/08/2017 for the same symptoms, and she signed out AMA on She states she is supposed to be on Lasix 20mg TID and has been out for 2 weeks , she states her EF is 25%. No echo on file. Review of Systems Except as stated in HPI: all other systems reviewed are Neg Past Family Social History Past Medical History reports hx of heart attack CHF COPD BLE amputations from an injury in 07/30 Past Surgical History Smay BKA from 07/30 Hysterectomy Reported Medications Reported Meds & Active Scripts Active Proair Respiclick Inh (Albuterol Sulfate) 90 Mcg/Act Aerp 2 Puff INH Q6H PRN Reported Aspirin Children's (Aspirin) 81 Mg Chew 81 Mg CHEW DAILY Nitroglycerin SL (Nitroglycerin) 0.4 Mg Subl 0.4 Mg SL DIRECTED PRN ONE TABLET UNDER THE TONGUE NEEDED FOR CHEST PAIN, MAY REPEAT EVERY FIVE MINUTES FOR A TOTAL OF 3 DOSES OR CALL 911 IF NO RELIEF Ventolin Hfa 18 GM Inh (Albuterol Sulfate) 90 Mcg/Act Aer 2 Puff INH Q4-6H PRN Amitriptyline (Amitriptyline HCl) 25 Mg Tab 25 Mg PO HS Gabapentin 600 Mg Tab 600 Mg PO HS Advair Diskus Inh (Fluticasone-Salmeterol Inh) 100-50 Mcg/Blist Aer 1 Puff INH BID Rinse mouth after use. Allergies: Coded Allergies: penicillin G (Verified Allergy, Severe, Rash, 07/16/17) Active Ordered Medications Current Medications Medications (Trade) Dose Ordered Sig/Pippa Route Start Time Stop Time Status Last Admin (NS Flush) 2 ml UNSCH PRN IV FLUSH 07/16/17 20:00 (NS Flush) 2 ml BID IV FLUSH 07/16/17 21:00 07/16/17 21:52 (Narcan Inj) 0.4 mg UNSCH PRN IV 07/16/17 20:00 (Duoneb Neb) 1 ampule Q6HR NEB NEB 07/16/17 22:00 07/16/17 20:46 (Duoneb Neb) 1 ampule Q2HR NEB PRN NEB 07/16/17 20:00 07/16/17 23:30 (SoluMEDROL INJ) 40 mg Q6HR IV PUSH 07/17/17 00:00 (Protonix) 40 mg DAILY PO 07/17/17 09:00 Family History Mom and Dad: Heart disease, Brain aneurysm Social History Tobacco use: 1 pack every 4 days Alcohol use: Denies Illicit drug use: Denies Physical Exam Vital Signs Vital Signs Date Time Temp Pulse Resp B/P (MAP) Pulse Ox O2 Delivery O2 Flow Rate FiO2 07/16/17 21:56 106 22 112/56 (74) 97 Venturi Mask 50 07/16/17 21:20 96 Venturi Mask 50 07/16/17 20:50 98 35 07/16/17 20:21 96 Venturi Mask 15.00 07/16/17 19:28 107 22 129/59 (82) 99 Non-Rebreather 15.00 07/16/17 19:20 100 Non-Rebreather 07/16/17 18:01 94 BiPAP 07/16/17 17:58 95 50 07/16/17 16:09 96 Nasal Cannula 4.00 07/16/17 16:00 100 Nasal Cannula 3.00 07/16/17 16:00 104 24 144/90 (108) 100 Nasal Cannula 3.00 07/16/17 16:00 103 24 100 Nasal Cannula 3.00 07/16/17 16:00 104 24 144/90 (108) 100 Nasal Cannula 3.00 07/16/17 15:27 98.3 109 24 127/82 (97) 98 Physical Exam GENERAL: This is a well-nourished, well-developed patient, who appears sob. SKIN: profusely diaphoretic, bed is wet behind her head HEAD: Atraumatic. Normocephalic. EYES: Pupils equal round and reactive. ENT: Nose without bleeding, purulent drainage or septal hematoma. Airway patent. NECK: Trachea midline. No JVD CARDIOVASCULAR: Tachycardic rate and rhythm without murmurs, gallops, or rubs. RESPIRATORY: Auditory wheezes. however, seems to resolve during conversation when she calms down GASTROINTESTINAL: Abdomen soft, non-tender, nondistended. MUSCULOSKELETAL: Extremities without clubbing, cyanosis, or edema. No joint tenderness, effusion, or edema noted. Samy BKA with prosthesis in place. NEUROLOGICAL: Awake and alert. Motor and sensory grossly within normal limits. Normal speech. Laboratory Laboratory Tests Test 07/16/17 16:35 07/16/17 18:21 White Blood Count 10.2 Red Blood Count 4.29 Hemoglobin 13.8 Hematocrit 40.5 Mean Corpuscular Volume 94.4 Mean Corpuscular Hemoglobin 32.3 Mean Corpuscular Hemoglobin Concent 34.2 Red Cell Distribution Width 14.2 Platelet Count 233 Mean Platelet Volume 7.9 Neutrophils (%) (Auto) 70.2 Lymphocytes (%) (Auto) 21.3 Monocytes (%) (Auto) 5.9 Eosinophils (%) (Auto) 2.3 Basophils (%) (Auto) 0.3 Neutrophils # (Auto) 7.1 Lymphocytes # (Auto) 2.2 Monocytes # (Auto) 0.6 Eosinophils # (Auto) 0.2 Basophils # (Auto) 0.0 CBC Comment DIFF FINAL Differential Comment Prothrombin Time 10.6 Prothromb Time International Ratio 1.0 Activated Partial Thromboplast Time 28.4 Blood Urea Nitrogen 6 Creatinine 0.71 Random Glucose 141 Calcium Level 8.0 Sodium Level 141 Potassium Level 3.2 Chloride Level 108 Carbon Dioxide Level 24.5 Anion Gap 9 Estimat Glomerular Filtration Rate 88 Total Creatine Kinase 24 Troponin I LESS THAN 0.02 B-Type Natriuretic Peptide 7 Blood Gas Puncture Site LT RADIAL Blood Gas Patient Temperature 98.6 Blood Gas HCO3 24 Blood Gas Base Excess -0.7 Blood Gas Oxygen Saturation 97 Arterial Blood pH 7.37 Arterial Blood Partial Pressure CO2 42 Arterial Blood Partial Pressure O2 231 Arterial Blood Oxygen Content 19.7 Arterial Blood Carboxyhemoglobin 1.5 Arterial Blood Methemoglobin 1.0 Blood Gas Hemoglobin 14.1 Oxygen Delivery Device BiPAP Blood Gas Ventilator Setting [id number] Blood Gas Inspired Oxygen 50 Result Diagram: 07/16/17 1635 07/16/17 1635 Imaging Last Impressions Chest X-Ray 07/16/17 1557 Signed Impressions: Service Date/Time: Sunday, July 16, 2017 16:00 - CONCLUSION: No acute disease. MD Rodger Caceres Jr. VTE Risk Assessment Rodger VTE Risk Assessment: Mod/High Risk (score >= 2) VTE [facility] Contraindication: Bilateral amputee Rodger Risk Assessment Model Point Value = 1 Point Value = 2 Point Value = 3 Point Value = 5 Age 41-60 Minor surgery BMI > 25 kg/m2 Swollen legs Varicose veins or History of unexplained or recurrent spontaneous Oral contraceptives or hormone replacement Sepsis (< 1 month) Serious lung disease, including pneumonia (< 1 month) Abnormal pulmonary function Acute myocardial infarction Congestive heart failure (< 1 month) History of inflammatory bowel disease Medical patient at bed rest Age 61-74 Arthroscopic surgery Major open surgery (> 45 min) Laparoscopic surgery (> 45 min) Malignancy Confined to bed (> 72 hours) Immobilizing plaster cast Central venous access Age >= 75 History of VTE Family history of VTE Factor V Leiden Prothrombin [id number] Lupus anticoagulant Anticardiolipin antibodies Elevated serum homocysteine Heparin-induced thrombocytopenia Other congenital or acquired thrombophilia Stroke (< 1 month) Elective arthroplasty Hip, pelvis, or leg fracture Acute spinal cord injury (< 1 month) Prophylaxis Regimen Total Risk Factor Score Risk Level Prophylaxis Regimen 0-1 Low Early ambulation 2 Moderate Order ONE of the following: *Sequential Compression Device (SCD) *Heparin 5000 units SQ BID 3-4 Higher Order ONE of the following medications: *Heparin 5000 units SQ TID *Enoxaparin/Lovenox 40 mg SQ daily (WT < 150 kg, CrCl > 30 mL/min) *Enoxaparin/Lovenox 30 mg SQ daily (WT < 150 kg, CrCl > 10-29 mL/min) *Enoxaparin/Lovenox 30 mg SQ BID (WT < 150 kg, CrCl > 30 mL/min) AND/OR *Sequential Compression Device (SCD) 5 or more Highest Order ONE of the following medications: *Heparin 5000 units SQ TID (Preferred with Epidurals) *Enoxaparin/Lovenox 40 mg SQ daily (WT < 150 kg, CrCl > 30 mL/min) *Enoxaparin/Lovenox 30 mg SQ daily (WT < 150 kg, CrCl > 10-29 mL/min) *Enoxaparin/Lovenox 30 mg SQ BID (WT < 150 kg, CrCl > 30 mL/min) AND *Sequential Compression Device (SCD) Assessment and Plan Problem List: (1) COPD exacerbation ICD Code: J44.1 - Chronic obstructive pulmonary disease with (acute) exacerbation Status: Acute (2) Hypokalemia ICD Code: E87.6 - Hypokalemia Assessment and Plan 47 y/o female with a history of COPD on 2L most of the day, CHF, and CAD presented to the ED with complaints of shortness of breath for 3 days. Acute respiratory failure, patient requiring venti mask, normally on 2 L at home , due to COPD- was on bipap on initial arrival, refused later on during her stay in ER Chest x ray reviewed and shows no acute disease; BNP 7 CTA reviewed and shows no PE, and Minimal basilar areas of suspected atelectasis or consolidation being worse on the right -Atrovent nebs scheduled and prn -bipap if tolerated, at this time patient is anxious and refused it initially , but now agreeable after pain meds -Pain management with IV Dilaudid -IV solumedrol -Patient will need a walk test prior to leaving -Case management for home 02 - will consider ativan prn if breathing is not improved Hypokalemia, potassium 3.2- close monitoring due to freq beta agonist use -Supplement ordered -BMP in AM, replace as needed DVT prophylaxis: Lovenox GI prophylaxis: Protonix This note was transcribed by andie [Janna Lincoln]. I, Dr. Brice Rodriguez personally performed the history, physical exam, and medical decision making; and confirmed the accuracy of the information in the transcribed note. Authenticated by Dr. Brice Rodriguez on 07/16/17 at 23:50. Discussed Condition With Patient and ED physician Physician Certification 2 Midnight Certification Type: Admission for Inpatient Services Order for Inpatient Services The services are ordered in accordance with Medicare regulations or non- Medicare payer requirements, as applicable. In the case of services not specified as inpatient-only, they are appropriately provided as inpatient services in accordance with the 2-midnight benchmark. Estimated LOS (days): 2 days is the estimated time the patient will need to remain in the hospital, assuming treatment plan goals are met and no additional complications. Post-Hospital Plan: Home Janna Lincoln Jul 16, 2017 23:54 Brice Rodriguez MD Jul 17, 2017 01:59
[2017-07-17] VITALS (7 sets, daily range): BP systolic 99–118; BP diastolic 60–69; PULSE 80–112; RESP 18–22; TEMP 97.5–98.9; O2SAT 91–97
[2017-07-17] MEDS ORDERED: RESP: IPRATROPIUM 0.5 MG/2.5 ML NEB NEB PRN (00:30)
[2017-07-17] MEDS ORDERED: POTASSIUM CHLORIDE 20 MEQ CONTROLLED RELEASE TAB PO ONE (00:30)
[2017-07-17] MEDS: HYDROmorphone HCL PF 1 MG/ML VIAL IV PUSH PRN ×2 (01:09→07:31)
[2017-07-17] MEDS: RESP: IPRATROPIUM 0.5 MG/2.5 ML NEB NEB SCH ×3 (03:45→09:08)
[2017-07-17] MEDS ORDERED: LORazepam 2 MG/ML VIAL IV PUSH ONE (04:15)
[2017-07-17] MEDS: methylPREDNISolone SOD SUCC 40 MG/1 ML VIAL IV PUSH SCH ×2 (07:31)
[2017-07-17] MEDS ORDERED: ENOXAPARIN SODIUM 40 MG/0.4 ML SYRINGE SQ SCH (09:00)
[2017-07-17] MEDS ORDERED: PANTOPRAZOLE SOD 40 MG DELAYED RELEASE TAB PO SCH (09:00)
[2017-07-17 09:17] LABS: AUTOMATED NEUTROPHIL # 10.4 TH/MM3 (1.8-7.7); BASOPHIL % 0.1 % (0.0-2.0); HEMATOCRIT 38.2 % (35.0-46.0); HEMO FLAGS DIFF FINAL; LYMPH % 8.2 % (9.0-44.0); MEAN CELL VOLUME 94.2 FL (80.0-100.0); MEAN CORPUSCULAR HEMOGLOBIN 31.3 PG (27.0-34.0); MEAN CORPUSCULAR HGB CONC 33.2 % (32.0-36.0); MONO % 2.6 % (0.0-8.0); NEUT % 89.1 % (16.0-70.0); PLATELET COUNT 230 TH/MM3 (150-450); RED BLOOD COUNT 4.06 MIL/MM3 (4.00-5.30); RED CELL DISTRIBUTION WIDTH 14.5 % (11.6-17.2); WHITE BLOOD COUNT 11.7 TH/MM3 (4.0-11.0)
[2017-07-17 09:28] LABS: BICARBONATE 21.6 MEQ/L (21.0-32.0); POTASSIUM 5.1 MEQ/L (3.5-5.1)
[2017-07-17] MEDS: ALPRAZolam 0.5 MG TAB PO PRN (09:42)
[2017-07-17] MEDS: SODIUM CHLORIDE 0.9% FLUSH 10 ML FLUSH IV FLUSH SCH (09:42)
[2017-07-17] MEDS ORDERED: ASPIRIN 81 MG CHEW TAB CHEW SCH (10:00)
[2017-07-17] MEDS ORDERED: BUDESONIDE-FORMOTEROL 80/4.5 MCG INHALER INH SCH (10:00)
--- NOTE | 2017-07-17 10:45 | PD.AMA ---
Against Medical Advice Note Diagnosis: (1) COPD exacerbation (2) Hypokalemia Discharge Disposition: Against Medical Advice Pt Condition on Discharge: Stable Recommended Treatment Course It was recommended that the pt remain in the hospital for oxygen, breathing treatments, steroids and to assess the need for home oxygen. We also wanted to monitor her labs as she was found to be hypokalemic. The pt did not wish to stay in the hospital for treatment. She left AGAINST MEDICAL ADVICE before I had the chance to meet her. AMA Statement Patient Flower Rossi has decided to leave the hospital against medical advice. This patient has the capacity to refuse care and understands the risks of leaving, including permanent disability and/or , and has had an opportunity to ask questions about her condition. The patient has been informed that she may return for care at any time, and follow up has been arranged/ advised. Lopez Temple DO Jul 17, 2017 10:45
--- NOTE | 2017-07-17 10:46 | HHI.DCPOC ---
Discharge Care Plan Diagnosis: (1) Hypokalemia (2) COPD exacerbation Goals to Promote Your Health * To prevent worsening of your condition and complications * To maintain your health at the optimal level Directions to Meet Your Goals Take your medications as prescribed Follow your dietary instruction Follow activity as directed Keep your appointments as scheduled Take your immunizations and boosters as scheduled If your symptoms worsen call your PCP, if no PCP go to Urgent Care Center or Emergency Room Smoking is Dangerous to Your Health. Avoid second hand smoke Call the 24-hour hour crisis hotline for domestic abuse at Lopez Temple DO Jul 17, 2017 10:46
--- NOTE | 2017-07-17 11:10 | EKG ---
Date Performed: 07/16/2017 Time Performed: 17:17:45 PTAGE: 47 years EKG: SINUS TACHYCARDIA Early transition, which is similar to the old tracing ABNORMAL RHYTHM ECG PREVIOUS TRACING : 07/09/2017 15.53 No significant change from the prior tracing. DOCTOR: Dakota Veliz Interpretating Date/Time 07/17/2017 11:09:19
[2017-07-17] MEDS ORDERED: AMITRIPTYLINE HCL 25 MG TAB PO SCH (21:00)
[2017-07-17] MEDS ORDERED: GABAPENTIN 300 MG CAP PO SCH (21:00)
== END 2017-07-17 10:06 | disposition left against medical advice (07) | DRG 190 ==
LOC: NEPC 15:25 → NEDA 19:57 → HOCA 07-17 00:47 → HCIS 07-17 08:24
PROVIDERS: ADMIT Hospitalist; ATTEND Hospitalist
PROC: 5A09357 Assistance with Respiratory Ventilation, Less than 24 Consecutive Hours, Continuous Positive Airway Pressure (ICD-10-PCS; principal; 2017-07-16)
DX: J44.1 Chronic obstructive pulmonary disease with (acute) exacerbation (principal); J96.00 Acute respiratory failure, unspecified whether with hypoxia or hypercapnia; I50.9 Heart failure, unspecified; Z99.81 Dependence on supplemental oxygen; E87.6 Hypokalemia; F17.210 Nicotine dependence, cigarettes, uncomplicated; Z89.511 Acquired absence of right leg below knee; Z89.512 Acquired absence of left leg below knee; I25.2 Old myocardial infarction; Z88.0 Allergy status to penicillin
CPT/HCPCS: 36600; 71010; 71275; 76937; 80048; 82550; 82805; 83880; 84484; 85025; 85610; 85730; 93005; 94002; 94640; 94664; 96374; 96375; J1170; J1650; J2060; J2270; J2405; J2920; J2930; J7644; Q9967